=== PATIENT | male | born 1945 | race Caucasian/White ===

== ENCOUNTER 2016-12-13 09:03 | Observation (INO) | payer OTHER, BC ==
[~2016-12-13] VITALS: Ht 193 cm; Wt 131.7 kg
--- NOTE | ~2016-12-13 | HP ---
History And Physical [id number] [place]. [address] NAME: RIOS RASHID : 43 STATUS : ADM Cathy PAT#: [id number] AGE: 71 ADM/REG DATE : 12/13/16 MR#: [id number] REPORT SERV DATE: 12/13/16 DICTATED BY: MAYA MALAVE DATE: 12/13/16 REPORT STATUS : Draft TRANSCRIBED BY: MODBritta DATE: 12/13/16 DATE OF ADMISSION: 12/13/2016 PRIMARY CARE PROVIDER: Joni Worrell PA-C and [facility], Dr. Grant. CHIEF COMPLAINT: Atrial fibrillation, rate controlled. HISTORY OF PRESENT ILLNESS: This is a very pleasant 71-year-old white gentleman with no known history of CAD or previous documented episodes of atrial fibrillation, who reports that over the past two months he has experienced episodes of shortness of breath and fatigue. He saw his PCP approximately one week ago. He was found to be in atrial fibrillation. He was started on Eliquis 5 mg twice daily at that time. This morning, on arising he was dizzy, sitting on the side of the bed. He remained dizzy and was somewhat more so when he ambulated to a chair. Given his ongoing symptoms, he asked his to call EMS and bring him to the emergency room. The patient denies any personal history of myocardial infarction, stroke, DVT, or pulmonary embolus. The patient denies any fever or chills. Unaware of palpitations. No syncopal events. Denies PND or orthopnea. The patient received a CHADS-VASc score of 2 for age and hypertension. PAST MEDICAL HISTORY: 1. Recent diagnosis of atrial fibrillation, rate controlled on Eliquis. 2. Hypertension. 3. BPH. 4. Obesity. 5. Sleep apnea, compliant with CPAP. 6. Cholesterol. Followed by PCP and reportedly "fine.". 7. Denies diabetes. PAST SURGICAL HISTORY: 1. Hernia repair. 2. Appendectomy. 3. Ear drum surgery. SOCIAL HISTORY: He is . Grown children. Quit smoking 25 years ago. Currently smokes an occasional cigar. Consumes two drinks per week. Denies illicits. FAMILY HISTORY: No embolic events reported in first-degree relatives. No history of atrial fibrillation in first-degree relatives. REVIEW OF SYSTEMS: A 14-point review of systems performed, significant for HPI including home blood pressures of 120/80. The patient is n.p.o. this morning. Has not taken his morning dose of Eliquis which will be provided now. Otherwise, complete review of systems obtained and negative. History And Physical [address] [place] [place]. [address] NAME: RIOS RASHID : 43 STATUS : ADM Cathy PAT#: [id number] AGE: 71 ADM/REG DATE : 12/13/16 MR#: [id number] REPORT SERV DATE: 12/13/16 DICTATED BY: MAYA MALAVE DATE: 12/13/16 REPORT STATUS : Draft TRANSCRIBED BY: RACHEL DATE: 12/13/16 ALLERGIES: NO KNOWN DRUG ALLERGIES. HOME MEDICINES: Atenolol 50 mg daily, hydrochlorothiazide 25 mg daily, Mobic 15 mg daily, multivitamin daily, artificial tears p.r.n., aspirin 81 mg daily, losartan 100 mg daily, Hytrin 5 mg nightly, Proscar 5 mg daily, amlodipine 10 mg daily, Colace 100 mg daily, vitamin D3 5000 units daily, Zyrtec 10 mg daily p.r.n., Eliquis 5 mg twice daily. PHYSICAL EXAMINATION: VITAL SIGNS: Blood pressure 124/74, pulse was 66 and irregularly irregular, respirations 18, temperature 98.8, O2 saturation 95% on room air. Height 6 feet 4 inches. Weight 300 pounds (stated). GENERAL: Cooperative, in no apparent distress. HEENT: Pupils 2 mm, sclera nonicteric. Nares patent. Moist mucous membranes. No xanthelasma. NECK: Trachea midline, no thyromegaly. No JVD. No bruits. LYMPH: No cervical lymphadenopathy. No supraclavicular lymphadenopathy. RESPIRATORY: Unlabored respirations. Breath sounds clear bilaterally to posterior auscultation. No wheezes or rhonchi. CARDIOVASCULAR: Irregularly irregular rate with a variable S1 and S2. No murmur, rub, or gallop appreciated. Normal carotid. ABDOMEN: Obese, soft, nontender, nondistended, normal bowel sounds auscultated throughout. No organomegaly. SKIN: Warm, dry extremities. No pallor or cyanosis. PSYCHIATRIC: Appropriate affect. Alert, oriented x3. LABORATORY DATA: Troponin less than 0.02. Potassium 4.0, BUN 14, creatinine 1.09, glucose 118, magnesium 2.2. BNP pending. WBC 7.1, hemoglobin 14.0, hematocrit 41.1, platelet count 179,000. EKG: Atrial fibrillation with rate controlled. ASSESSMENT AND PLAN: 1. Atrial fibrillation, rate controlled, symptomatic. Check BNP. N.p.o. for MELISSA. Cardioversion today at 1400 hours. Continue Eliquis 5 mg with this morning's dose provided now. The patient reports he has not missed any doses until this morning. Follow up with Cardiology. Check a transthoracic echocardiogram given the patient is unaware of palpitations. 2. Hypertension, well controlled. Continue home medications. 3. Obesity. Diet and exercise discussed. 4. New oral anticoagulants. Eliquis 5 mg p.o. b.i.d. to be continued at discharge. Follow up with Cardiology. BELLA History And Physical [address] [address] NAME: RIOS RASHID : 43 STATUS : ADM Cathy PAT#: [id number] AGE: 71 ADM/REG DATE : 12/13/16 MR#: [id number] REPORT SERV DATE: 12/13/16 DICTATED BY: MAYA MALAVE DATE: 12/13/16 REPORT STATUS : Draft TRANSCRIBED BY: RACHEL DATE: 12/13/16 Maya Malave, MSN, INFORMATICS PHARMACIST-BC / [id number] CC: GRANT Sandoval
--- NOTE | ~2016-12-13 | CN ---
Consultation Report [facility] [address] [place]. [address] NAME: RIOS RASHID : 43 STATUS : ADM Cathy PAT#: [id number] AGE: 71 ADM/REG DATE : 12/13/16 MR#: [id number] REPORT SERV DATE: 12/13/16 DICTATED BY: DATE: REPORT STATUS : Draft TRANSCRIBED BY: MODL DATE: 12/13/16 NEUROLOGY CONSULTATION DATE OF CONSULTATION: 12/13/2016 REASON FOR CONSULT: Evaluate for clearance for MELISSA. HISTORY OF PRESENT ILLNESS: This is a 71-year-old male who presented to [facility] secondary to dizzy episode. The patient reports waking up, sitting by the side of the bed, felt vision abnormalities. The patient felt like the room was moving up and down. The patient's symptoms resolved within one toe two minutes. However, the patient subsequently complained of dizzy episode described as if about to pass out, but denies any actual loss of consciousness. The patient attempted to walk to the chair and sit down with persistence of dizzy sensation. As a result, ambulance was called, and the patient was brought to the hospital for evaluation. The patient reported dizzy sensation has since resolved and denies any focal weakness and numbness, and denies any dysarthria or dysphagia. The patient denies similar symptoms in the past. He has had recent diagnosis of atrial fibrillation, was started on Eliquis. The patient reports compliance with the medication. Otherwise, denies any other changes in medication and denies any palpitation. Denies any chest discomfort or shortness of breath and denies any recent illness, fever, nausea, vomiting, or any other concerns. PAST MEDICAL HISTORY: Significant for newly diagnosed atrial fibrillation, currently on Eliquis; hypertension; sleep apnea; cholesterol issues. SOCIAL HISTORY: Denies tobacco, alcohol, or recreational drug usage. FAMILY HISTORY: No reports of atrial fibrillation or coronary artery disease or stroke was otherwise reported. REVIEW OF SYSTEMS: Negative except for those mentioned in the HPI. ALLERGIES: THE PATIENT REPORTS NO KNOWN DRUG ALLERGIES. HOME MEDICATIONS: Consist of Norvasc, Eliquis, artificial tears, aspirin, atenolol, Zyrtec, vitamin D3, Colace, Proscar, hydrochlorothiazide, Cozaar, Mobic, multivitamin, and terazosin. PHYSICAL EXAMINATION: VITAL SIGNS: At the time of my evaluation, the patient was noted to have vital signs T-max of 98.8, heart rate of 69 to 72, respirations of 17 to 18, and blood pressure of 115 to 124 over 72 to 74. GENERAL: The patient is well developed, well nourished, in no acute distress. Consultation Report [facility] [place]. [address] NAME: RIOS RASHID : 43 STATUS : ADM Cathy PAT#: [id number] AGE: 71 ADM/REG DATE : 12/13/16 MR#: [id number] REPORT SERV DATE: 12/13/16 DICTATED BY: DATE: REPORT STATUS : Draft TRANSCRIBED BY: MODL DATE: 12/13/16 CARDIOVASCULAR: Regular rate and rhythm. No carotid bruits were otherwise auscultated. PULMONARY: Clear to auscultation bilaterally. NEUROLOGICAL: Generally, the patient is alert and oriented to person, place, year, and month. Follows simple and two-step commands. Intact registration and recall. No aphasia and dysarthria were noted. Cranial nerves 2 through 12, pupil are round and reactive to light. Extraocular eye movement was noted to be intact. No nystagmus was otherwise seen. The patient complained of no diplopia with extraocular eye movement. Reports symmetrical facial expression and sensation. Midline tongue. Normal palatal movement. Normal hearing. The patient was noted to have 5/5 bilateral upper and lower extremity strength. No pronator drift was otherwise appreciated. Normal sensation bilaterally. Normal nrihvb-bg-ggob examination without ataxia. Deep tendon reflex was 2+ throughout. The patient demonstrated normal and stable gait. LABORATORY STUDIES: Demonstrated sodium 142, potassium 4.0, chloride 108, bicarb 26, BUN of 14, creatinine 1.09, glucose 118, calcium of 9.1, magnesium 2.2. White blood cell count of 7.1, hemoglobin of 14.0, hematocrit of 41.1, and platelet count of 179. No neuroimaging was otherwise obtained during current hospitalization. IMPRESSION: Presyncopal sensation with visual changes. Concern for possible cerebral hypoperfusion versus possible transient ischemic attack. Okay to proceed with transesophageal echocardiogram from neuro standpoint. As the patient is with stroke, routinely, he will receive MELISSA as a form of evaluation for etiology for stroke. Meanwhile, we will also check MRI of the brain without contrast for evaluation. We will check orthostatic vitals q. shift. We will start the patient on thiamine 100 mg p.o. daily. Meanwhile, we will check fasting lipid panel and hemoglobin A1c with morning labs and secondary to the patient's stroke risk, we will start the patient on Lipitor 80 mg p.o. q.h.s. RECOMMENDATIONS: 1. MRI of the brain without contrast. 2. Thiamine 100 mg p.o. daily. 3. Fasting lipid panel and hemoglobin A1c. 4. Lipitor 80 mg p.o. q.h.s. 5. Okay to proceed with transesophageal echocardiogram from neuro standpoint. 6. Orthostatic vitals q. shift. [facility]/RACHEL Nadeem Booker MD / [id number] Consultation Report [address] [address] NAME: RIOS RASHID : 43 STATUS : ADM Cathy PAT#: [id number] AGE: 71 ADM/REG DATE : 12/13/16 MR#: [id number] REPORT SERV DATE: 12/13/16 DICTATED BY: DATE: REPORT STATUS : Draft TRANSCRIBED BY: RACHEL DATE: 12/13/16 CC: Maya Malave, MSN, COUNCIL MEMBER-BC Joni Worrell PA-C
--- NOTE | ~2016-12-13 | TEE ---
Transesophageal Echocardiogram [facility] [address] [facility] [place]. [address] NAME: RIOS RASHID : 43 STATUS : ADM Cathy PAT#: [id number] AGE: 71 ADM/REG DATE : 12/13/16 MR#: [id number] REPORT SERV DATE: 12/14/16 DICTATED BY: DATE: REPORT STATUS : Draft TRANSCRIBED BY: MODL DATE: 12/14/16 INDICATION: Atrial fibrillation. CONSENT: The patient's history was reviewed and appropriateness for the procedure was ascertained. There were no significant or concerning findings on history or exam such as dysphagia or esophageal stricture. There was a question of whether or not the patient had transient hypoperfusion during one of his events yesterday, and he is currently being followed by Neurology. An MRI is pending. A bubble study yesterday did not reveal any evidence of shunt. All questions were answered and consent was obtained by the patient. PROCEDURE: Sedation via propofol administered by our anesthesia colleagues was obtained. The probe was inserted without difficulty and exam was performed as below. The probe was subsequently removed and contained no blood. Following elimination of left atrial appendage thrombus, successful 200 joule synchronized cardioversion was applied and returned the patient in normal sinus rhythm. There were no immediate complications. FINDINGS: 1. Left ventricle. The left ventricle was grossly normal with a left ventricular ejection fraction of 55%. 2. Left atrium. Unremarkable. No evidence of thrombus. 3. Left atrial appendage. The left atrial appendage was meticulously inspected and it did not reveal any evidence of thrombus. There was evidence of 30 cm/second Doppler flow out of the left atrial appendage. Pulmonary veins were similarly inspected and revealed D greater than S morphology. 4. Right ventricle. The right ventricle was eerz-ue-ioplkoonov enlarged, but appeared to have a normal ventricular function. 5. Right atrium. The right atrium was also enlarged, but did not contain any thrombus. 6. Interatrial septum. 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 7. Aortic valve. Trivial aortic regurgitation. 8. Mitral valve. Mild MR. 9. Pulmonic valve. No IN. 10.Tricuspid valve. Mild tricuspid regurgitation. RVSP did not exceed 20. 11.Descending aorta. Mild to moderate atherosclerosis. CONCLUSION: 1. STATUS POST SUCCESSFUL DCC/MELISSA WITH 200 JOULES SYNCHRONIZED SHOCK X1, RETURNING THE PATIENT TO NORMAL SINUS RHYTHM FOLLOWING THE EXCLUSION OF ANY LEFT ATRIAL APPENDAGE CLOT. 2. NO LA, SARAH, OR RA THROMBUS. 3. GROSSLY NORMAL LEFT VENTRICULAR EJECTION FRACTION. 4. DILATED RIGHT VENTRICLE. 5. MILD MR, MILD TR. [facility]/RACHEL Transesophageal Echocardiogram [address] [address] NAME: RIOS RASHID : 43 STATUS : ADM Cathy PAT#: [id number] AGE: 71 ADM/REG DATE : 12/13/16 MR#: [id number] REPORT SERV DATE: 12/14/16 DICTATED BY: DATE: REPORT STATUS : Draft TRANSCRIBED BY: RACHEL DATE: 12/14/16 Nino Carcamo IV, MD / [id number] CC: Maya Malave, MSN, MARINE WELDER-BC Joni Worrell PA-C
[2016-12-13 10:20] LABS: BASOPHILS 0.6 %; BASOPHILS ABSOLUTE 0.04 10/3/uL (0.0-0.16); EOSINOPHILS 1.8 %; EOSINOPHILS ABSOLUTE 0.13 10/3/uL (0.0-0.53); ER CBC TAT 0 Hrs 05 Mins; HEMATOCRIT 41.1 % (40.0-51.0); IMMATURE GRANULOCYTES 0.3 %; IMMATURE GRANULOCYTES ABSOLUTE 0.02 10/3/uL (0.0-0.11); MANUAL DIFF NO %; MEAN CORPUS HGB CONC 34.1 g/dL (32.0-36.0); MEAN CORPUSCULAR HEMOGLOB 29.2 pg (26.0-34.0); MEAN CORPUSCULAR VOLUME 85.6 fL (80-100); MEAN PLATELET VOLUME 10.2 fL (9.2-13.0); MONOCYTES 7.2 %; MONOCYTES ABSOLUTE 0.51 10/3/uL (0.21-1.20); NEUTROPHILS 73.1 %; NEUTROPHILS ABSOLUTE 5.16 10/3/uL (2.02-8.40); PLATELET COUNT 179 10/3/uL (150-400); RBC DISTRIBUTION WIDTH 13.3 % (12.0-16.0); WHITE BLOOD CELLS 7.1 10/3/uL (4.5-10.5)
[2016-12-13 10:28] LABS: INTERNATIONAL NORMAL RATI 1.2 UNITS (-); PARTIAL THROMBO TIME 32.2 SEC (22.5-37.2); PROTIME (NOT ORD) 15.4 SEC (12.0-14.5)
[2016-12-13 10:37] LABS: BUN (BLOOD UREA NITROGEN) 14 MG/DL (6-23); CALCIUM, SERUM 9.1 MG/DL (8.5-10.4); CHEST PAIN PROFILE TAT 0 Hrs 22 Mins; CHLORIDE, SERUM 108 MMOL/L (96-112); CO2 (CARBON DIOXIDE) 26 MMOL/L (24-34); CREATININE 1.09 MG/DL (0.70-1.30); GFR AFRICAN AMERICAN 78 ML/MIN (>=60); GFR NON AFRICAN AMERICAN 67 ML/MIN (>=60); GLUCOSE, SERUM 118 MG/DL (60-99); SODIUM, SERUM 142 MMOL/L (135-148); TROPONIN I <0.02 NG/ML (<0.05)
[2016-12-13 10:42] LABS: ASCORBIC ACID (UR NOT ORDER) NEG (NEG); BILIRUBIN, URINE NEGATIVE (NEG); ER URINALYSIS TAT 0 Hrs 20 Mins; KETONE, URINE NEGATIVE (NEG); LEUKOCYTE ESTERASE(NOT OR NEG (NEG); NITRITE (URINE) NEG (NEG); WBC (NOT ORDERED) (RFLEX) 1 (0-5)
[2016-12-13] MEDS ORDERED: MOBIC15 MG PO (11:43)
[2016-12-13] MEDS ORDERED: ATEN50 PO (11:43)
[2016-12-13] MEDS ORDERED: HYDROCHLOROT25 MG PO (11:43)
[2016-12-13] MEDS ORDERED: THERGRANM PO (11:44)
[2016-12-13] MEDS ORDERED: TEARS PLUS OPH (11:44)
[2016-12-13] MEDS ORDERED: HALF81 PO (11:44)
[2016-12-13] MEDS ORDERED: HYT5 PO (11:44)
[2016-12-13] MEDS ORDERED: COZAAR100 MG PO (11:44)
[2016-12-13] MEDS ORDERED: PROSCAR5 PO (11:45)
[2016-12-13] MEDS ORDERED: VITAMIN D31000 UNIT PO (11:45)
[2016-12-13] MEDS ORDERED: NORV10 PO (11:45)
[2016-12-13] MEDS ORDERED: DSS PO (11:45)
[2016-12-13] MEDS ORDERED: ZYRTEC ALLGY10 MG PO (11:45)
[2016-12-13] MEDS ORDERED: ELIQUIS 5 MG TAB5 MG PO (11:46)
[2016-12-13 17:53] LABS: ALKALINE PHOSPHATASE 84 U/L (45-117); DIRECT BILIRUBIN < 0.1 MG/DL (0.0-0.4); INDIRECT BILIRUBIN(NOT ORDER) 0.4 MG/DL (0.1-0.9); SGOT(AST) 16 U/L (5-40); SGPT(ALT) 31 U/L (5-65); TOTAL BILIRUBIN 0.5 MG/DL (0-1.2); TOTAL PROTEIN 7.2 G/DL (6.0-8.5)
[2016-12-14 05:49] LABS: BASOPHILS 0.4 %; BASOPHILS ABSOLUTE 0.03 10/3/uL (0.0-0.16); EOSINOPHILS ABSOLUTE 0.14 10/3/uL (0.0-0.53); HEMATOCRIT 39.6 % (40.0-51.0); HEMOGLOBIN 13.4 g/dL (13.6-17.8); IMMATURE GRANULOCYTES 0.1 %; IMMATURE GRANULOCYTES ABSOLUTE 0.01 10/3/uL (0.0-0.11); LYMPHOCYTES 25.1 %; LYMPHOCYTES ABSOLUTE 1.77 10/3/uL (0.67-4.30); MEAN CORPUS HGB CONC 33.8 g/dL (32.0-36.0); MEAN CORPUSCULAR VOLUME 85.7 fL (80-100); MONOCYTES 9.2 %; MONOCYTES ABSOLUTE 0.65 10/3/uL (0.21-1.20); NEUTROPHILS 63.2 %; NEUTROPHILS ABSOLUTE 4.44 10/3/uL (2.02-8.40); PLATELET COUNT 180 10/3/uL (150-400); RBC DISTRIBUTION WIDTH 13.4 % (12.0-16.0); RED CELL COUNT 4.62 10/6/uL (4.7-6.1)
[2016-12-14 05:53] LABS: MANUAL DIFF NO %
[2016-12-14 06:02] LABS: BUN (BLOOD UREA NITROGEN) 15 MG/DL (6-23); CALCIUM, SERUM 8.9 MG/DL (8.5-10.4); CHLORIDE, SERUM 105 MMOL/L (96-112); CHOL/HDL RATIO(NOT ORDER) 5.6 (0-5); CHOLESTEROL 168 MG/DL (< 200); CO2 (CARBON DIOXIDE) 25 MMOL/L (24-34); CREATININE 1.06 MG/DL (0.70-1.30); GFR AFRICAN AMERICAN 81 ML/MIN (>=60); GFR NON AFRICAN AMERICAN 70 ML/MIN (>=60); GLUCOSE, SERUM 115 MG/DL (60-99); HDL CHOLESTEROL 30 MG/DL (> 39); LDL CHOLESTEROL 94 MG/DL (< 130); NON-HDL CHOLESTEROL 138 MG/DL (< 160); POTASSIUM, SERUM 3.7 MMOL/L (3.5-5.3); SODIUM, SERUM 140 MMOL/L (135-148); TRIGLYCERIDE 224 MG/DL (< 150)
[2016-12-14] MEDS ORDERED: LIPITOR40 PO (14:59)
== END 2016-12-14 15:42 | disposition home or self-care (01) ==
LOC: ER 09:03 → CDU2 14:10 → CDU1 14:10 → CDU2 14:29
PROVIDERS: Clinical Nurse Specialist; Hospitalist
DX: I48.91 Unspecified atrial fibrillation (principal); I10 Essential (primary) hypertension; E66.9 Obesity, unspecified; N40.0 Benign prostatic hyperplasia without lower urinary tract symptoms; G47.33 Obstructive sleep apnea (adult) (pediatric); Z68.35 Body mass index [BMI] 35.0-35.9, adult; Z79.01 Long term (current) use of anticoagulants; Z90.49 Acquired absence of other specified parts of digestive tract; Z87.891 Personal history of nicotine dependence; Z79.82 Long term (current) use of aspirin; Z79.899 Other long term (current) drug therapy
CPT/HCPCS: 70551; 71010; 80048; 80061; 80076; 81001; 83036; 83735; 83880; 84439; 84443; 84484; 85025; 85610; 85730; 92960; 93005; 93312; 93320; 93325; 99285; A9270-GY; C8929; G0378; Q9957